=== PATIENT | female | born 1990 | race Asian ===

== ENCOUNTER 2021-12-07 18:37 | Emergency (ER) | payer SELFPAY ==
[2021-12-07 19:20] VITALS: BP 140/78
== END 2021-12-07 23:00 | disposition left against medical advice (07) ==
LOC: ED 18:37
DX: S61.209A Unspecified open wound of unspecified finger without damage to nail, initial encounter (principal); Z53.21 Procedure and treatment not carried out due to patient leaving prior to being seen by health care provider; X58.XXXA Exposure to other specified factors, initial encounter; Y93.89 Activity, other specified; Y92.89 Other specified places as the place of occurrence of the external cause; Y99.8 Other external cause status